=== PATIENT | male | born 1975 | race Hispanic/Latino ===

== ENCOUNTER 2021-01-08 00:23 | Emergency (ER) | payer SELFPAY ==
[2021-01-08] MEDS ORDERED: methylPREDNISolone Acetate 40 mg/ml Vial ONE (00:56)
== END 2021-01-08 01:17 | disposition home or self-care (01) ==
LOC: NAV ERS 00:23
DX: R09.81 Nasal congestion (principal); F17.210 Nicotine dependence, cigarettes, uncomplicated
CPT/HCPCS: 96372; 99283; J2920

== ENCOUNTER 2022-03-17 08:40 | Emergency (ER) | payer SELFPAY ==
[2022-03-17 09:35] LABS: #Basophils 0.1 thou/uL (0.0-0.2); #Eosinphils 0.2 thou/uL (0.0-0.7); #Lymphocytes 1.8 thou/uL (1.20-3.40); #Monocytes 0.6 thou/uL (0.11-0.59); #Neutrophils 2.9 thou/uL (1.40-6.50); %Basophils 1.6 % (0.0-1.0); %Lymphocytes 32.8 % (21.0-51.0); %Monocytes 10.3 % (0.0-10.0); %Neutrophils 52.3 % (42.0-75.0); Hemoglobin 12.4 g/dL (14.0-18.0); Mean Corpuscular HGB CONC 29.2 g/dL (32.0-36.0); Mean Corpuscular Hemoglobin 24.1 pg (27.0-31.0); Mean Corpuscular Volume 82.5 fL (78.0-98.0); Mean Platelet Volume 7.9 fL (7.4-10.4); Platelet Count 239 thou/uL (130-400); RBC Distribution Width 17.8 % (11.5-14.5); Red Blood Cell (RBC) Count 5.13 mill/uL (4.70-6.10); White Blood Cell (WBC) Count 5.5 thou/uL (4.8-10.8)
[2022-03-17] MEDS ORDERED: Sodium Chloride 0.9% 1,000 ML ONE (09:37)
[2022-03-17 09:38] LABS: ALT (SGPT) 211 U/L (8-55); AST (SGOT) 204 U/L (5-34); Albumin 4.6 g/dL (3.5-5.0); Alkaline Phosphatase 89 U/L (40-110); Anion Gap 16 mmol/L (10-20); BUN (Urea Nitrogen) 13 mg/dL (8.9-20.6); Bilirubin, Total 0.5 mg/dL (0.2-1.2); CK (CPK) 321 U/L (30-200); Calc. Creatinine Clearance 0 mL/min (70-130); Calcium 10.2 mg/dL (7.8-10.44); Carbon Dioxide 26 mmol/L (22-29); Chloride 101 mmol/L (98-107); Estimated GFR 113; Globulin 3.2 g/dL (2.4-3.5); Glucose 109 mg/dL (70-105); Magnesium 1.7 mg/dL (1.6-2.6); Potassium 4.1 mmol/L (3.5-5.1); Protein, Total 7.8 g/dL (6.0-8.3); Sodium 139 mmol/L (136-145)
== END 2022-03-17 10:15 | disposition home or self-care (01) ==
LOC: NAV ERS 08:40
DX: E86.0 Dehydration (principal); R25.2 Cramp and spasm; R74.8 Abnormal levels of other serum enzymes
CPT/HCPCS: 80053; 82550; 83735; 85025; 86140; 96360; J7050

== ENCOUNTER 2024-04-17 06:30 | Emergency (ER) | payer SELFPAY ==
[2024-04-17 07:01] LABS: #Basophils 0.1 thou/uL (0.0-0.2); #Eosinphils 0.1 thou/uL (0.0-0.7); #Monocytes 0.8 thou/uL (0.11-0.59); #Neutrophils 10.9 thou/uL (1.40-6.50); %Basophils 0.7 % (0.0-1.0); %Lymphocytes 19.7 % (21.0-51.0); %Monocytes 5.5 % (0.0-10.0); %Neutrophils 73.2 % (42.0-75.0); Hematocrit 44.2 % (42.0-52.0); Mean Corpuscular Hemoglobin 31.3 pg (27.0-31.0); Mean Corpuscular Volume 91.8 fl (78.0-98.0); Platelet Count 370 10x3/uL (130-400); RBC Distribution Width 13.5 % (11.5-14.5); Red Blood Cell (RBC) Count 4.81 mill/uL (4.70-6.10)
[2024-04-17] MEDS ORDERED: Ondansetron PF 4 MG/2 ML Vial ONE (07:07)
[2024-04-17] MEDS ORDERED: Sodium Chloride 0.9% 1,000 ML ONE (07:07)
[2024-04-17 07:16] LABS: ALT (SGPT) 41 U/L (8-55); AST (SGOT) 25 U/L (5-34); Albumin 4.2 g/dL (3.5-5.0); Alkaline Phosphatase 108 U/L (40-110); Anion Gap 15 mmol/L (10-20); BUN (Urea Nitrogen) 11 mg/dL (8.9-20.6); Bilirubin, Total 0.3 mg/dL (0.2-1.2); Calc. Creatinine Clearance 0 mL/min (70-130); Carbon Dioxide 23 mmol/L (22-29); Chloride 104 mmol/L (98-107); Estimated GFR 110; Globulin 3.6 g/dL (2.4-3.5); Glucose 100 mg/dL (70-105); Lipase 46 U/L (8-78); Potassium 4.2 mmol/L (3.5-5.1); Protein, Total 7.8 g/dL (6.0-8.3); Sodium 138 mmol/L (136-145)
[2024-04-17] MEDS ORDERED: Morphine 4 MG/ML VIAL ONE (07:17)
[2024-04-17] MEDS ORDERED: Morphine 2 MG/ML VIAL ONE (08:55)
[2024-04-17] MEDS ORDERED: Iopamidol 370 76% 100 ML VIAL ONE (09:00)
== END 2024-04-17 09:09 | disposition short-term general hospital (02) ==
LOC: NAV ERS 06:30
DX: K56.600 Partial intestinal obstruction, unspecified as to cause (principal); F17.290 Nicotine dependence, other tobacco product, uncomplicated; I10 Essential (primary) hypertension; Z79.899 Other long term (current) drug therapy
CPT/HCPCS: 74177; 80053; 83605; 83690; 85025; 96361; 96374; 96375; 96376; J2272; J2405; J7030; Q9967